=== PATIENT | female | born 1990 | race Caucasian/White ===

== ENCOUNTER 2024-08-05 11:38 | Emergency (ER) | payer BC, SELFPAY ==
[2024-08-05] VITALS (11 sets, daily range): BP systolic 82–133; BP diastolic 37–92; BMI 39.4
[2024-08-05 12:13] LABS: % Basophils 0.6 % (0-2); % Immature Granulocytes 0.2 % (0-0.5); % Lymphocytes 31.1 % (20.5-51.1); % Monocytes 4.4 % (1.7-9.3); % Neutrophils 60.7 % (42.2-75.2); Absolute Basophils 0.1 10^3/uL (0-0.2); Absolute Eosinophils 0.3 10^3/uL (0-0.7); Absolute Lymphocytes 2.8 10^3/uL (1.2-3.4); Absolute Monocytes 0.4 10^3/uL (0.1-0.6); Absolute Neutrophils 5.5 10^3/uL (1.4-6.5); Hematocrit 38.4 % (37.0-47.0); Hemoglobin 12.8 g/dL (12.0-16.0); Mean Corp Hgb Conc. 33.3 g/dL (33.0-37.0); Mean Corpuscular Hgb 27.8 pg (27.0-31.0); Mean Corpuscular Volume 83.5 fL (81.0-99.0); Mean Platelet Volume 9.1 fL (7.4-10.4); Nucleated Red Blood Cells % 0 %; Platelet Count 386 10^3/uL (130-400); Red Cell Dist. Width 13.8 % (11.5-14.5); White Blood Cell Count 9.1 10^3/uL (4.8-10.8)
[2024-08-05 12:20] LABS: Urine Albumin Negative (Neg - Trace); Urine Bilirubin Negative (Negative); Urine Character Clear (Clear); Urine Color Yellow; Urine Glucose Negative (Negative); Urine Ketone Negative (Negative); Urine Leukocyte Negative (Negative); Urine Nitrite Negative (Negative); Urine Occult Blood Trace (Negative); Urine Specific Gravity 1.015 (<1.030); Urine Urobilinogen Negative (Neg - 1+)
[2024-08-05 12:42] LABS: ALT (SGPT) 29 U/L (0-35); AST (SGOT) 28 U/L (14-36); Albumin 4.7 g/dl (3.5-5.0); Alkaline Phosphatase 79 U/L (38-126); Blood Urea Nitrogen 10 mg/dl (7-17); Calcium 10.3 mg/dl (8.4-10.2); Carbon Dioxide 23 mmol/L (22-30); Chloride 103 mmol/L (98-107); Estimated Creatinine Clearance > 125 ml/min; Glucose 88 mg/dl (70-99); Potassium 4.6 mmol/L (3.5-5.1); Sodium 140 mmol/L (135-145); Total Bilirubin 0.2 mg/dl (0.2-1.3); Total Protein 7.3 g/dl (6.3-8.2); eGFR > 60.00
[2024-08-05 12:42] LABS: Urine Bacteria Few (Negative); Urine Red Blood Cell 0-2 /HPF (0-2); Urine White Cell 0-2 /HPF (0-5)
[2024-08-05 12:44] LABS: Alcohol None Detected
[2024-08-05 12:56] LABS: HCG, Urine Qualitative Screen Negative
[2024-08-05 13:08] LABS: Amphetamines Negative (Negative); Barbiturates Negative (Negative); Benzodiazepines Negative (Negative); Buprenorphine Negative (Negative); Cocaine Negative (Negative); Marijuana Negative (Negative); Methadone Negative (Negative); Methamphetamines Negative (Negative); Opiates Positive (Negative); Phencyclidine Negative (Negative); Tricyclic Antidepressants Positive (Negative)
[2024-08-05 13:29] LABS: Fentanyl, Urine Negative (Negative)
--- NOTE | 2024-08-05 13:42 | ED.GENMED ---
History of Present Illness
General
Chief Complaint: Change in Mental Status
Time Seen by Provider: 08/05/24 12:06
History of Present Illness
History of Present Illness:
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 She went to her primary care physician's office this morning with a complaint of 'bladder spasms' and reportedly
seemed altered for her primary care physician last nonnormal was called. Patient admits to feeling 'off' but cannot give any further details. When questioned about having any dysuria or lower abdominal pain she states 'I do not know what pain is'.
She denies any illicit substance use. Denies any hallucinations or suicidal/homicidal ideation. Denies any recent fevers
Past History
Past History
ED Past Medical History: Other (Erler's Danlos syndrome)
Review of Systems
Review of Systems
Allergies reviewed?: Yes
All Other Systems: ROS reviewed and negative except as documented in HPI and ROS
Phy Exam
Physical Exam
Physical Exam:
GEN: Well appearing, NAD, WDWN
HEENT: Oral mucosa moist, no scleral icterus, pupils equal round and reactive to light
Cardiac: Regular rate
Lung: No respiratory distress, no tachypnea
MSK: No gross deformity or injuries
Skin: Good color, no pallor or jaundice, no rashes
Neuro: AO x3, moves all extremities freely
Psych: Calm and cooperative, flat affect
Course
Orders/Labs/Results
Orders:
Orders
08/05/24 11:59
Test Result ONCE
08/05/24 12:03
Alcohol Urgent
Complete Blood Count/With Diff Urgent
Comprehensive Metabolic Panel Urgent
08/05/24 12:04
Drug Screen, Urine [Urine Drug Abuse Screen] Urgent
Date Specimen was Collected: 08/05/24
Time Specimen was Collected: 12:00
Fentanyl, Urine Urgent
HCG, Urine Qualitative Screen Urgent
Date Specimen was Collected: 08/05/24
Time Specimen was Collected: 12:00
Urinalysis Reflex To Culture Urgent
Date Specimen was Collected: 08/05/24
Time Specimen was Collected: 11:58
Urine Microscopic Reflex Cult Urgent
08/05/24 12:10
Add On- LAB Urgent
Tests Added?: blood alcohol level
08/05/24 13:01
Midodrine [ProAmatine] 5 mg PO NOW STA
08/05/24 13:25
Propranolol [Inderal] 10 mg PO NOW STA
Abnormal Lab Results
08/05/24 08/05/24
12:03 12:04
Calcium 10.3 H mg/dl
(8.4-10.2)
Ur Occult Blood Reflex Trace A
(Negative)
Urine Bacteria (Reflex) Few A
(Negative)
Urine Opiates Screen Positive H
(Negative)
Ur Tricyclics Screen Positive H
(Negative)
08/05/24 12:03
08/05/24 12:03
Vital Signs
Initial and Last Documented VS:
Initial Vital Signs
Temp Pulse Resp BP Pulse Ox
98.1 F 74 18 133/83 95
08/05/24 11:51 08/05/24 11:51 08/05/24 11:51 08/05/24 11:51 08/05/24 11:51
Last Documented Vital Signs
Temp Pulse Resp BP Pulse Ox
98.1 F 75 16 108/92 98
08/05/24 11:51 08/05/24 14:00 08/05/24 14:00 08/05/24 14:00 08/05/24 14:45
MDM/Problems Addressed
MDM/Problems Addressed:
Unclear etiology to the patient's symptoms. Urinalysis is bland although urine opiates are positive, the patient does not present with a clinical syndrome compatible with opiate toxicity. Her labs are otherwise reassuring. Urinalysis not
consistent with UTI. On reevaluation the patient's mental status seems to have normalized, she is discharged in stable condition
*Critical Care Note
Total Time (30-74mins, 75-104mins- exclusive of procedures): Not Applicable
ED Attending Note
-
Portions of this chart may have been created with voice recognition software.� Occasional wrong word or��sound alike� substitutions may have occurred due to the inherent limitations of voice recognition software.
Discharge Plan
Departure
Patient Disposition: Home (Routine Discharge)
Date of Disposition: 08/05/24
Time of Disposition: 14:09
Patient with high blood pressure during this ER visit?: No
Discharge Problem:
Transient confusion
Instructions: Altered Mental Status (DC)
Prescriptions:
No Action
midodrine
1 tab PO TID
Patient Comments:
pt unsure of dose
nortriptyline
1 tab PO DAILY
Patient Comments:
pt unsure of dose
propranolol
1 tab PO TID
Patient Comments:
pt unsure of dose
Referrals:
Alfa Valentin DO [Family Provider] -
Interventions
Interventions:
*Risk Screen - Suicide Last Done: 08/05/24 11:51
*General Assessment Last Done: 08/05/24 11:51
*Neglect/Abuse Screening Last Done: 08/05/24 11:51
ED- Fall Risk Assessment Last Done: 08/05/24 14:45
*ED COVID-19 Vaccine History Last Done: 08/05/24 12:15
*Nursing Disposition Last Done: 08/05/24 14:45
ED- Cardiac Assessment Last Done: 08/05/24 14:45
ED-Female Genitourinary Assessment Last Done: 08/05/24 12:16
ED- Neurological Assessment Last Done: 08/05/24 12:23
ED-Psychological Assessment Last Done: 08/05/24 14:45
ED- Pulmonary Assessment Last Done: 08/05/24 14:45
Discharge Date and Time
Discharge Date/Time: 08/05/24 14:47
Print Language: [id number]
[2024-08-05] MEDS: INDERAL 10 MG PO (13:43)
[2024-08-05] MEDS: ProAmatine 5 MG PO (13:43)
== END 2024-08-05 14:47 | disposition home or self-care (01) ==
LOC: EMR 11:38
PROVIDERS: EMERGENCY PHYSICIAN Emergency Medicine; FAMILY PHYSICIAN Family Medicine
DX: R41.0 Disorientation, unspecified (principal); Q79.60 Ehlers-Danlos syndrome, unspecified; Z88.2 Allergy status to sulfonamides; Z88.8 Allergy status to other drugs, medicaments and biological substances
CPT/HCPCS: 99283; 80053; 80306; 80307; 81003; 81015; 81025; 82077; 85025